=== PATIENT | male | born 1945 | race Caucasian/White ===

== ENCOUNTER → 2024-05-25 | Outpatient (CLI) | payer OTHER, SELFPAY ==
[2024-05-25 08:31] LABS: Basophils % (Auto) 1 % (0-2.5); Eosinophils # (Auto) 0.1 Thou/mm3 (0.0-0.5); Eosinophils % (Auto) 4 % (0-10); Hematocrit 35.8 % (41.0-53.0); Hemoglobin 11.2 g/dL (13.5-16.0); Immature Granulocytes % (Auto) 0 % (0-0); Immature Granulocytes Auto 0.01 Thou/mm3 (0.00-0.00); Lymphocytes # (Auto) 0.6 Thou/mm3 (1.0-4.8); Lymphocytes % (Auto) 15 % (10-50); Mean Corpuscular HGB Conc 31.3 g/dl (31.0-37.0); Mean Corpuscular Hemoglobin 32.2 pg (25.0-35.0); Mean Corpuscular Volume 103 fL (80-100); Monocytes # (Auto) 0.4 Thou/mm3 (0.0-0.8); Monocytes % (Auto) 10 % (0-12); Neutrophils # (Auto) 2.7 Thou/mm3 (1.8-7.7); Neutrophils % (Auto) 70 % (37-80); Nucleated Red Blood Cell % 0 /100 WBC (0); Platelet Count 128 Thou/mm3 (140-440); RDW Standard Deviation 53.7 fL (35.1-43.9); Red Blood Count 3.48 Miln/mm3 (4.50-5.90); White Blood Count 3.8 Thou/mm3 (3.8-10.6)
[2024-05-25 08:50] LABS: Alanine Aminotransferase 13 U/L (10-49); Alkaline Phosphatase 51 U/L (46-116); Anion Gap 8 (7-16); Aspartate Amino Transferase 15 U/L (0-34); BUN/Creatinine Ratio 21 Ratio (12-20); Bilirubin,Total 0.3 mg/dL (0.3-1.2); Blood Urea Nitrogen 29 mg/dL (9-23); Calcium 8.9 mg/dL (8.3-10.6); Calcium (Corrected) 8.9 mg/dL (8.5-10.1); Carbon Dioxide 30.2 mMol/L (20.0-31.0); Chloride 107 mMol/L (98-107); Creatinine (Component) 1.4 mg/dL (0.6-1.3); Free T4 (Free Thyroxine) 0.96 ng/dL (0.89-1.76); Glucose 106 mg/dL (74-106); Osmolality,Calculated 294 (275-295); Potassium 4.4 mMol/L (3.4-5.1); Sodium 145 mMol/L (136-145); Thyroid Stimulating Hormone 26.21 uIU/mL (0.55-4.78); eGFR 51 See Note
[2024-05-31 11:18] LABS: Albumin 3.9 g/dL (3.8-4.8); Alpha-1-Globulin 0.3 g/dL (0.2-0.3); Alpha-2-Globulin 0.6 g/dL (0.5-0.9); Beta-1-Globulin 0.4 g/dL (0.4-0.6); Beta-2-globulin 0.3 g/dL (0.2-0.5); Gamma Globulin 0.7 g/dL (0.8-1.7); Kappa Light Chain, Free 16.4 mg/L (3.3-19.4); Lambda Light Chain, Free 7.8 mg/L (5.7-26.3)
[2024-06-01 07:16] LABS: Beta 2 Microglobulin 2.63 mg/L (< OR = 2.51); Protein, total, serum 6.1 g/dL (6.1-8.1)
== END | disposition home or self-care (01) ==
LOC: SCTO 07:23
PROVIDERS: PCP Internal Medicine; Referring Provider Internal Medicine Hematology & Oncology; Visit Provider Internal Medicine Hematology & Oncology
DX: C90.00 Multiple myeloma not having achieved remission (principal); E03.9 Hypothyroidism, unspecified
CPT/HCPCS: 36415; 80053; 82232; 83521; 84155; 84165; 84439; 84443; 85025; 86334

== ENCOUNTER → 2024-05-26 | Outpatient (CLI) | payer OTHER, SELFPAY ==
[2024-05-26 10:21] LABS: Protein Total, Urine Volume 2390 mL/24hr (600-1800)
[2024-05-26 10:47] LABS: Protein Total, 24 hr Urine 191 mg/24hr (<149); Protein Total, Urine 8 mg/dL (1-14)
== END | disposition home or self-care (01) ==
LOC: SLDO 09:39
PROVIDERS: Referring Provider Internal Medicine Hematology & Oncology; Visit Provider Internal Medicine Hematology & Oncology
DX: C90.00 Multiple myeloma not having achieved remission (principal)
CPT/HCPCS: 84156

== ENCOUNTER 2024-06-01 11:03 | Outpatient (RCR) | payer OTHER, SELFPAY ==
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
== END 2024-06-28 23:59 | disposition home or self-care (01) ==
LOC: SCTC 11:03
PROVIDERS: PCP Internal Medicine; Referring Provider Internal Medicine; Visit Provider Internal Medicine Hematology & Oncology
DX: C90.00 Multiple myeloma not having achieved remission (principal); D64.9 Anemia, unspecified; Z79.82 Long term (current) use of aspirin
CPT/HCPCS: 99212; G0463

== ENCOUNTER → 2024-06-01 | Outpatient (CLI) | payer OTHER, SELFPAY ==
[2024-06-01 13:16] LABS: Immature Reticulocyte Fraction 22.1 % (2.3-13.4); Reticulocyte % (Auto) 2.2 % (0.5-1.5); Reticulocyte Absolute Auto 73.4 Biln/L (25.0-75.0)
[2024-06-01 13:22] LABS: Ferritin 85 ng/mL (10.5-307.3); Iron 79 mcg/dL (65-175); Percent Iron Saturation 27 % (20-55); Total Iron Binding Capacity 283 mcg/dL (250-425); Unsaturated Iron Binding 204 (225-295)
[2024-06-02 03:58] LABS: Folate 18.96 ng/mL (>5.38); Vitamin B12 716 pg/mL (211-911)
[2024-06-05 15:36] LABS: Albumin 4.4 g/dL (3.8-4.8); Alpha-1-Globulin 0.3 g/dL (0.2-0.3); Alpha-2-Globulin 0.6 g/dL (0.5-0.9); Beta-1-Globulin 0.3 g/dL (0.4-0.6); Beta-2-globulin 0.2 g/dL (0.2-0.5); Gamma Globulin 0.5 g/dL (0.8-1.7); Immunoglobulin A 129 mg/dL (70-320); Immunoglobulin G 823 mg/dL (600-1540); Kappa Light Chain, Free 21.7 mg/L (3.3-19.4); Lambda Light Chain, Free 15.5 mg/L (5.7-26.3)
[2024-06-06 03:07] LABS: Albumin, Random Urine 100 %; Alpha 1 Globulin, Random Urine 0 %; Alpha 2 Globulin, Random Urine 0 %; Beta Globulin, Random Urine 0 %; Gamma Globulin, Random Urine 0 %; Protein,Total,Random Urine 12 mg/dL (5-25); Protein/Creatinine Ratio 149 mg/g creat (25-148)
[2024-06-06 06:46] LABS: Beta 2 Microglobulin 2.67 mg/L (< OR = 2.51); Erythropoietin (EPO)* 12.5 mIU/mL (2.6-18.5); Immunoglobulin M 10 mg/dL (50-300); Protein, total, serum 6.3 g/dL (6.1-8.1); Testosterone,Total* 394 ng/dL (250-1100)
[2024-06-06 06:47] LABS: Creatinine, Random Urine 81 mg/dL (20-320); Protein/Creatinine Ratio mg/mg 0.149 (0.025-0.148)
== END | disposition home or self-care (01) ==
LOC: COPL 12:00 → SCTO 12:01
PROVIDERS: PCP Internal Medicine; Referring Provider Internal Medicine Hematology & Oncology; Visit Provider Internal Medicine Hematology & Oncology
DX: C90.00 Multiple myeloma not having achieved remission (principal)
CPT/HCPCS: 36415; 82232; 82570; 82607; 82668; 82728; 82746; 82784; 83521; 83540; 83550; 84155; 84156; 84165; 84166; 84403; 85046; 86334

== ENCOUNTER → 2024-06-05 | Outpatient (CLI) | payer OTHER, SELFPAY ==
[2024-06-05 11:57] LABS: Protein Total, Urine Volume 2550 mL/24hr (600-1800)
[2024-06-05 12:04] LABS: Protein Total, 24 hr Urine 179 mg/24hr (<149); Protein Total, Urine 7 mg/dL (1-14)
== END | disposition home or self-care (01) ==
LOC: SLDO 10:51
PROVIDERS: Referring Provider Internal Medicine Hematology & Oncology; Visit Provider Internal Medicine Hematology & Oncology
DX: C90.00 Multiple myeloma not having achieved remission (principal)
CPT/HCPCS: 84156

== ENCOUNTER → 2024-09-07 | Outpatient (CLI) | payer OTHER, SELFPAY ==
[2024-09-07 08:58] LABS: Basophils # (Auto) 0.1 Thou/mm3 (0.0-0.2); Basophils % (Auto) 1 % (0-2.5); Eosinophils # (Auto) 0.3 Thou/mm3 (0.0-0.5); Eosinophils % (Auto) 6 % (0-10); Hematocrit 35.9 % (41.0-53.0); Hemoglobin 11.2 g/dL (13.5-16.0); Immature Granulocytes Auto 0.04 Thou/mm3 (0.00-0.00); Immature Reticulocyte Fraction 13.6 % (2.3-13.4); Lymphocytes # (Auto) 0.5 Thou/mm3 (1.0-4.8); Lymphocytes % (Auto) 10 % (10-50); Mean Corpuscular HGB Conc 31.2 g/dl (31.0-37.0); Mean Corpuscular Hemoglobin 32.4 pg (25.0-35.0); Mean Corpuscular Volume 104 fL (80-100); Monocytes # (Auto) 0.5 Thou/mm3 (0.0-0.8); Monocytes % (Auto) 11 % (0-12); Neutrophils # (Auto) 3.5 Thou/mm3 (1.8-7.7); Neutrophils % (Auto) 71 % (37-80); Nucleated Red Blood Cell # 0.00 Thou/mm3 (0.00-0.00); Nucleated Red Blood Cell % 0 /100 WBC (0); Platelet Count 132 Thou/mm3 (140-440); RDW Standard Deviation 52.2 fL (35.1-43.9); Red Blood Count 3.46 Miln/mm3 (4.50-5.90); Reticulocyte % (Auto) 1.9 % (0.5-1.5); Reticulocyte Absolute Auto 65.0 Biln/L (25.0-75.0); Reticulocyte Hgb Content 34.1 pg (28.0-35.0); White Blood Count 4.9 Thou/mm3 (3.8-10.6)
[2024-09-07 09:11] LABS: Ferritin 114 ng/mL (10.5-307.3); Iron 58 mcg/dL (65-175); Percent Iron Saturation 21 % (20-55); Total Iron Binding Capacity 273 mcg/dL (250-425); Unsaturated Iron Binding 215 (225-295)
[2024-09-07 09:13] LABS: Folate 23.16 ng/mL (>5.38); Vitamin B12 961 pg/mL (211-911)
[2024-09-07 09:14] LABS: Alanine Aminotransferase 14 U/L (10-49); Albumin, Serum 4.1 gm/dL (3.4-4.8); Albumin/Globulin Ratio 1.7 (1.2-2.2); Alkaline Phosphatase 59 U/L (46-116); Anion Gap 8 (7-16); Aspartate Amino Transferase 19 U/L (0-34); BUN/Creatinine Ratio 24 Ratio (12-20); Bilirubin,Total 0.4 mg/dL (0.3-1.2); Blood Urea Nitrogen 38 mg/dL (9-23); Calcium 8.7 mg/dL (8.3-10.6); Calcium (Corrected) 8.7 mg/dL (8.5-10.1); Carbon Dioxide 31.0 mMol/L (20.0-31.0); Chloride 106 mMol/L (98-107); Creatinine (Component) 1.6 mg/dL (0.6-1.3); Globulin 2.4 gm/dL (2.3-3.5); Glucose 109 mg/dL (74-106); Osmolality,Calculated 298 (275-295); Potassium 4.4 mMol/L (3.4-5.1); Sodium 145 mMol/L (136-145); Total Protein 6.5 gm/dL (5.7-8.2); eGFR 43 See Note
[2024-09-12 19:52] LABS: Albumin 3.8 g/dL (3.8-4.8); Alpha-1-Globulin 0.3 g/dL (0.2-0.3); Alpha-2-Globulin 0.7 g/dL (0.5-0.9); Beta-1-Globulin 0.4 g/dL (0.4-0.6); Beta-2-globulin 0.3 g/dL (0.2-0.5); Gamma Globulin 0.7 g/dL (0.8-1.7); Immunoglobulin A 143 mg/dL (70-320); Immunoglobulin G 844 mg/dL (600-1540); Kappa Light Chain, Free 27.5 mg/L (3.3-19.4); Lambda Light Chain, Free 18.4 mg/L (5.7-26.3)
[2024-09-13 05:02] LABS: Albumin, Random Urine 100 %; Alpha 1 Globulin, Random Urine 0 %; Alpha 2 Globulin, Random Urine 0 %; Beta Globulin, Random Urine 0 %; Gamma Globulin, Random Urine 0 %; Protein,Total,Random Urine 13 mg/dL (5-25); Protein/Creatinine Ratio 140 mg/g creat (25-148)
[2024-09-13 06:31] LABS: Beta 2 Microglobulin 2.94 mg/L (< OR = 2.51); Erythropoietin (EPO)* 19.8 mIU/mL (2.6-18.5); Immunoglobulin M 13 mg/dL (50-300); Kappa/Lambda, Free Ratio 1.49 (0.26-1.65); Protein, total, serum 6.2 g/dL (6.1-8.1); Testosterone,Total* 348 ng/dL (250-1100)
[2024-09-13 06:36] LABS: Creatinine, Random Urine 93 mg/dL (20-320); Protein/Creatinine Ratio mg/mg 0.140 (0.025-0.148)
== END | disposition home or self-care (01) ==
LOC: COPL 07:29
PROVIDERS: PCP Internal Medicine; Referring Provider Internal Medicine Hematology & Oncology; Visit Provider Internal Medicine Hematology & Oncology
DX: C90.00 Multiple myeloma not having achieved remission (principal)
CPT/HCPCS: 36415; 80053; 82232; 82570; 82607; 82668; 82728; 82746; 82784; 83521; 83540; 83550; 84155; 84156; 84165; 84166; 84403; 85025; 85046; 86334

== ENCOUNTER 2024-09-20 10:25 | Outpatient (RCR) | payer OTHER, SELFPAY ==
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
== END 2024-09-28 23:59 | disposition home or self-care (01) ==
LOC: SCTC 10:25
PROVIDERS: PCP Internal Medicine; Referring Provider Internal Medicine; Visit Provider Internal Medicine Hematology & Oncology
DX: C90.01 Multiple myeloma in remission (principal); Z92.21 Personal history of antineoplastic chemotherapy; Z92.3 Personal history of irradiation; Z95.2 Presence of prosthetic heart valve; D64.9 Anemia, unspecified; Z85.830 Personal history of malignant neoplasm of bone; E29.1 Testicular hypofunction; Z86.16 Personal history of COVID-19
CPT/HCPCS: 99212; G0463

== ENCOUNTER → 2024-11-09 | Outpatient (CLI) | payer OTHER, SELFPAY ==
[2024-11-09 08:35] LABS: Basophils # (Auto) 0.1 Thou/mm3 (0.0-0.2); Basophils % (Auto) 1 % (0-2.5); Eosinophils # (Auto) 0.2 Thou/mm3 (0.0-0.5); Eosinophils % (Auto) 5 % (0-10); Hematocrit 36.9 % (41.0-53.0); Hemoglobin 11.3 g/dL (13.5-16.0); Immature Granulocytes Auto 0.03 Thou/mm3 (0.00-0.00); Lymphocytes # (Auto) 0.6 Thou/mm3 (1.0-4.8); Lymphocytes % (Auto) 16 % (10-50); Mean Corpuscular HGB Conc 30.6 g/dl (31.0-37.0); Mean Corpuscular Hemoglobin 32.7 pg (25.0-35.0); Mean Corpuscular Volume 107 fL (80-100); Monocytes # (Auto) 0.4 Thou/mm3 (0.0-0.8); Monocytes % (Auto) 11 % (0-12); Neutrophils # (Auto) 2.7 Thou/mm3 (1.8-7.7); Neutrophils % (Auto) 67 % (37-80); Nucleated Red Blood Cell # 0.00 Thou/mm3 (0.00-0.00); Nucleated Red Blood Cell % 0 /100 WBC (0); Platelet Count 111 Thou/mm3 (140-440); RDW Standard Deviation 60.6 fL (35.1-43.9); Red Blood Count 3.46 Miln/mm3 (4.50-5.90); White Blood Count 4.1 Thou/mm3 (3.8-10.6)
[2024-11-09 08:42] LABS: Glucose Estimated Average 100 mg/dL (80-131); Hemoglobin A1C 5.1 % Hgb (4.8-6.0)
[2024-11-09 08:47] LABS: Vitamin D 25 Hydroxy Total 58.7 ng/mL (7.3-40.2)
[2024-11-09 09:00] LABS: Alanine Aminotransferase 13 U/L (10-49); Albumin, Serum 4.1 gm/dL (3.4-4.8); Albumin/Globulin Ratio 2.3 (1.2-2.2); Alkaline Phosphatase 48 U/L (46-116); Anion Gap 8 (7-16); Aspartate Amino Transferase 17 U/L (0-34); BUN/Creatinine Ratio 24 Ratio (12-20); Bilirubin,Total 0.4 mg/dL (0.3-1.2); Blood Urea Nitrogen 41 mg/dL (9-23); Calcium 9.1 mg/dL (8.3-10.6); Calcium (Corrected) 9.1 mg/dL (8.5-10.1); Carbon Dioxide 30.8 mMol/L (20.0-31.0); Cardiac Risk Estimate 3.9 RATIO (4.0-6.7); Chloride 106 mMol/L (98-107); Cholesterol 209 mg/dL (132-200); Creatinine (Component) 1.7 mg/dL (0.6-1.3); Free T4 (Free Thyroxine) 0.95 ng/dL (0.89-1.76); Globulin 1.8 gm/dL (2.3-3.5); Glucose 102 mg/dL (74-106); HDL Cholesterol 53 mg/dL (40-60); LDL Cholesterol,Calculated 145 mg/dL (0-130); Osmolality,Calculated 298 (275-295); Potassium 4.9 mMol/L (3.4-5.1); Sodium 145 mMol/L (136-145); Thyroid Stimulating Hormone 34.45 uIU/mL (0.55-4.78); Total Protein 5.9 gm/dL (5.7-8.2); Triglycerides 53 mg/dL (30-150); eGFR 40 See Note
== END | disposition home or self-care (01) ==
LOC: COPL 06:59
PROVIDERS: PCP Internal Medicine; Referring Provider Internal Medicine; Visit Provider Internal Medicine
DX: Z00.00 Encounter for general adult medical examination without abnormal findings (principal); E55.9 Vitamin D deficiency, unspecified
CPT/HCPCS: 36415; 80053; 80061; 82306; 83036; 84439; 84443; 85025

== ENCOUNTER → 2025-01-30 | Outpatient (CLI) | payer OTHER, SELFPAY ==
[2025-01-30 10:06] LABS: Basophils # (Auto) 0.1 Thou/mm3 (0.0-0.2); Basophils % (Auto) 1 % (0-2.5); Eosinophils # (Auto) 0.2 Thou/mm3 (0.0-0.5); Eosinophils % (Auto) 6 % (0-10); Hematocrit 38.7 % (41.0-53.0); Hemoglobin 11.9 g/dL (13.5-16.0); Immature Granulocytes Auto 0.01 Thou/mm3 (0.00-0.00); Lymphocytes # (Auto) 0.6 Thou/mm3 (1.0-4.8); Lymphocytes % (Auto) 15 % (10-50); Mean Corpuscular HGB Conc 30.7 g/dl (31.0-37.0); Mean Corpuscular Hemoglobin 33.2 pg (25.0-35.0); Mean Corpuscular Volume 108 fL (80-100); Monocytes # (Auto) 0.4 Thou/mm3 (0.0-0.8); Monocytes % (Auto) 12 % (0-12); Neutrophils # (Auto) 2.5 Thou/mm3 (1.8-7.7); Neutrophils % (Auto) 66 % (37-80); Nucleated Red Blood Cell # 0.00 Thou/mm3 (0.00-0.00); Nucleated Red Blood Cell % 0 /100 WBC (0); Platelet Count 107 Thou/mm3 (140-440); RDW Standard Deviation 54.7 fL (35.1-43.9); Red Blood Count 3.58 Miln/mm3 (4.50-5.90); White Blood Count 3.8 Thou/mm3 (3.8-10.6)
[2025-01-30 10:17] LABS: Glucose Estimated Average 100 mg/dL (80-131); Hemoglobin A1C 5.1 % Hgb (4.8-6.0)
[2025-01-30 10:27] LABS: Alanine Aminotransferase 16 U/L (10-49); Albumin, Serum 4.1 gm/dL (3.4-4.8); Alkaline Phosphatase 52 U/L (46-116); Anion Gap 9 (7-16); Aspartate Amino Transferase 20 U/L (0-34); BUN/Creatinine Ratio 15 Ratio (12-20); Bilirubin,Total 0.4 mg/dL (0.3-1.2); Blood Urea Nitrogen 24 mg/dL (9-23); Calcium 9.2 mg/dL (8.3-10.6); Calcium (Corrected) 9.2 mg/dL (8.5-10.1); Carbon Dioxide 30.9 mMol/L (20.0-31.0); Chloride 106 mMol/L (98-107); Creatinine (Component) 1.6 mg/dL (0.6-1.3); Free T4 (Free Thyroxine) 1.25 ng/dL (0.89-1.76); Glucose 95 mg/dL (74-106); Osmolality,Calculated 294 (275-295); Potassium 4.4 mMol/L (3.4-5.1); Sodium 146 mMol/L (136-145); Thyroid Stimulating Hormone 13.11 uIU/mL (0.55-4.78); eGFR 43 See Note
[2025-01-30 13:04] LABS: Albumin/Globulin Ratio 1.8 (1.2-2.2); Globulin 2.3 gm/dL (2.3-3.5); Total Protein 6.4 gm/dL (5.7-8.2)
[2025-01-30 13:24] LABS: Cardiac Risk Estimate 4.4 RATIO (4.0-6.7); Cholesterol 210 mg/dL (132-200); HDL Cholesterol 48 mg/dL (40-60); LDL Cholesterol,Calculated 151 mg/dL (0-130); Triglycerides 57 mg/dL (30-150)
[2025-01-30 13:47] LABS: Vitamin D 25 Hydroxy Total 58.4 ng/mL (7.3-40.2)
== END | disposition home or self-care (01) ==
LOC: COPL 08:31
PROVIDERS: PCP Internal Medicine; Referring Provider Internal Medicine; Visit Provider Internal Medicine
DX: Z00.00 Encounter for general adult medical examination without abnormal findings (principal); E03.9 Hypothyroidism, unspecified
CPT/HCPCS: 36415; 80053; 80061; 82306; 83036; 84439; 84443; 85025